=== PATIENT | female | born 1995 | race Caucasian/White ===

== ENCOUNTER 2017-11-27 12:03 | Emergency (ER) | payer OTHER ==
[~2017-11-27] VITALS: Ht 167.6 cm; Wt 75.0 kg
[2017-11-27 12:28] VITALS: TEMP 36.5; Ht 167.6 cm; Wt 75.0 kg
[2017-11-27] MEDS ORDERED: LORAZEPAM 1 MG TAB SL STA (12:57)
--- NOTE | 2017-11-27 13:01 | DIAGNOSTIC IMAGING REPORT ---
CHEST ONE VIEW PORTABLE CLINICAL HISTORY: Chest Pain dyspnea COMPARISON STUDY: No previous studies for comparison. FINDINGS: The bones soft tissues and hemidiaphragms are normal. The cardiomediastinal silhouette is normal. The lungs are clear. The pulmonary vasculature is normal. IMPRESSION: Negative chest. The above report was generated using voice recognition software. It may contain grammatical, syntax or spelling errors. Electronically signed by: Pedro Ellison M.D. 11/27/2017 1:00 PM Dictated Date/Time: 11/27/2017 1:00 PM
[2017-11-27 13:14] LABS: BASO % 0.5 %; BASO ABS # 0.03 K/uL (0-0.2); EOS % 1.3 %; EOS ABS # 0.07 K/uL (0-0.5); HEMATOCRIT 45.1 % (37-47); HEMOGLOBIN 15.1 g/dL (12.0-16.0); IG# 0.01 K/uL (0.00-0.02); LYMPH % 31.7 %; LYMPH ABS # 1.77 K/uL (1.2-3.4); MEAN CORPUSCULAR HEMOGLOBIN 31.1 pg (25-34); MEAN CORPUSCULAR HGB CONC 33.5 g/dl (32-36); MEAN PLATELET VOLUME 9.7 fL (7.4-10.4); MONO ABS # 0.56 K/uL (0.11-0.59); NEUT % 56.3 %; NEUT ABS # 3.14 K/uL (1.4-6.5); PLATELET COUNT 297 K/uL (130-400); RED CELL DISTRIBUTION WIDTH CV 14.7 % (11.5-14.5); RED CELL DISTRIBUTION WIDTH SD 49.9 fL (36.4-46.3); WHITE BLOOD COUNT 5.58 K/uL (4.8-10.8)
[2017-11-27 13:24] LABS: BLOOD UREA NITROGEN 6 mg/dl (7-18); CALCIUM 9.1 mg/dl (8.5-10.1); CARBON DIOXIDE 24 mmol/L (21-32); CREATININE 0.66 mg/dl (0.60-1.20); GLUCOSE 84 mg/dl (70-99); POTASSIUM 3.4 mmol/L (3.5-5.1); SODIUM 138 mmol/L (136-145)
[2017-11-27 13:29] LABS: CKMB < 0.5 ng/ml (0.5-3.6)
[2017-11-27] MEDS ORDERED: NUTRPAK70 PO (13:39)
[2017-11-27] MEDS ORDERED: ACET-1311 PO (13:41)
[2017-11-27] MEDS ORDERED: IBUP-1050 PO (13:41)
[2017-11-27 13:53] LABS: INFLUENZA B ANTIGEN Neg for Influ B (NEG)
[2017-11-27 15:10] VITALS: BP 113/88; PULSE 103; O2SAT 100
--- NOTE | 2017-11-27 17:07 | EMERGENCY ROOM VISIT NOTE ---
History Report prepared by Gorge: Mary Grace Garces Under the Supervision of: Dr. Alonso Castro D.O. First contact with patient: 12:29 Chief Complaint: ANXIETY Stated Complaint: ANXIETY History of Present Illness The patient is a 22 year old female who presents to the Emergency Room with complaints of worsening anxiety beginning this morning. The patient was sick with a nonproductive cough and runny nose a week ago. The patient states she felt lightheadedness beginning yesterday. She states her lightheadedness worsens with change in positions. The patient states she started to feel anxious because of her illness. The patient has a history of anxiety. Denies any suicidal or homicidal ideations. Pt denies headache, change in vision, fevers, chest pain, shortness of breath, nausea, vomiting, diarrhea, pain with urination, and melena. Source of History: patient Onset: this morning Position: other (generalized) Quality: other (anxiety) Timing: worsening Associated Symptoms: + cough, No chest pain, No SOB, No nausea, No vomiting , No diarrhea, No urinary symptoms Review of Systems See HPI for pertinent positives & negatives. A total of 10 systems reviewed and were otherwise negative. Past Medical & Surgical Medical Problems: (1) Anxiety Family History Patient reports no known family medical history. Social History Occupation Status: employed Current/Historical Medications Scheduled Acetaminophen (Tylenol), 650 MG PO UD Ibuprofen (Advil), 400 MG PO UD Nutritional Supplements (Cold And Flu), 1 TAB PO UD Allergies Coded Allergies: No Known Allergies (Unverified , 11/27/17) Physical Exam Vital Signs Date Time Temp Pulse Resp B/P (MAP) Pulse Ox O2 Delivery O2 Flow Rate FiO2 11/27/17 15:10 103 18 113/88 100 Room Air 11/27/17 12:28 36.5 91 18 126/82 98 Room Air Physical Exam GENERAL: Sitting up in bed, tearful, no distress, and is talking in full sentences. EYE EXAM: normal conjunctiva. OROPHARYNX: no exudate, no erythema, lips, buccal mucosa, and tongue normal and mucous membranes are moist NECK: supple, no nuchal rigidity, no adenopathy, non-tender LUNGS: Clear to auscultation. Normal chest wall mechanics HEART: no murmurs, S1 normal and S2 normal ABDOMEN: abdomen soft, non-tender, normo-active bowel sounds, no masses, no rebound or guarding. BACK: Back is symmetrical on inspection and there is no deformity, no midline tenderness, no CVA tenderness. SKIN: no rashes and no bruising UPPER EXTREMITIES: upper extremities are grossly normal. LOWER EXTREMITIES: No pitting edema. Calves are equal bilaterally. NEURO EXAM: Normal sensorium, cranial nerves II-XII grossly intact, normal speech, no gross weakness of arms, no gross weakness of legs. Gross sensation intact PSYCH: Denies any suicidal or homicidal ideations. Medical Decision & Procedures ER Provider Diagnostic Interpretation: Radiology results as stated below per my review and the radiologist's interpretation: CHEST ONE VIEW PORTABLE FINDINGS: The bones soft tissues and hemidiaphragms are normal. The cardiomediastinal silhouette is normal. The lungs are clear. The pulmonary vasculature is normal. IMPRESSION: Negative chest. The above report was generated using voice recognition software. It may contain grammatical, syntax or spelling errors. Electronically signed by: Pedro Ellison M.D. Laboratory Results 11/27/17 13:00 Red Blood Count 4.85, Mean Corpuscular Volume 93.0, Mean Corpuscular Hemoglobin 31.1, Mean Corpuscular Hemoglobin Concent 33.5, Mean Platelet Volume 9.7, Neutrophils (%) (Auto) 56.3, Lymphocytes (%) (Auto) 31.7, Monocytes (%) (Auto) 10.0, Eosinophils (%) (Auto) 1.3, Basophils (%) (Auto) 0.5, Neutrophils # (Auto ) 3.14, Lymphocytes # (Auto) 1.77, Monocytes # (Auto) 0.56, Eosinophils # (Auto ) 0.07, Basophils # (Auto) 0.03 11/27/17 13:00 Test 11/27/17 13:00 11/27/17 13:21 White Blood Count 5.58 K/uL (4.8-10.8) Red Blood Count 4.85 M/uL (4.2-5.4) Hemoglobin 15.1 g/dL (12.0-16.0) Hematocrit 45.1 % (37-47) Mean Corpuscular Volume 93.0 fL (80-100) Mean Corpuscular Hemoglobin 31.1 pg (25-34) Mean Corpuscular Hemoglobin Concent 33.5 g/dl (32-36) Platelet Count 297 K/uL (130-400) Mean Platelet Volume 9.7 fL (7.4-10.4) Neutrophils (%) (Auto) 56.3 % Lymphocytes (%) (Auto) 31.7 % Monocytes (%) (Auto) 10.0 % Eosinophils (%) (Auto) 1.3 % Basophils (%) (Auto) 0.5 % Neutrophils # (Auto) 3.14 K/uL (1.4-6.5) Lymphocytes # (Auto) 1.77 K/uL (1.2-3.4) Monocytes # (Auto) 0.56 K/uL (0.11-0.59) Eosinophils # (Auto) 0.07 K/uL (0-0.5) Basophils # (Auto) 0.03 K/uL (0-0.2) RDW Standard Deviation 49.9 fL (36.4-46.3) RDW Coefficient of Variation 14.7 % (11.5-14.5) Immature Granulocyte % (Auto) 0.2 % Immature Granulocyte # (Auto) 0.01 K/uL (0.00-0.02) Anion Gap 8.0 mmol/L (3-11) Est Creatinine Clear Calc Drug Dose 136.0 ml/min Estimated GFR () 143.3 Estimated GFR (Non- 123.6 BUN/Creatinine Ratio 9.0 (10-20) Calcium Level 9.1 mg/dl (8.5-10.1) Total Creatine Kinase 31 U/L (26-192) Creatine Kinase MB < 0.5 ng/ml (0.5-3.6) Creatine Kinase MB Ratio (0-3.0) Troponin I < 0.015 ng/ml (0-0.045) Influenza Type A Antigen Neg for Influ A (NEG) Influenza Type B Antigen Neg for Influ B (NEG) Laboratory results per my review. Medications Administered Medications (Trade) Dose Ordered Sig/Suhas Route Start Time Stop Time Status Last Admin Dose Admin Lorazepam (Ativan Tab) 1 mg NOW STAT SL 11/27/17 12:57 11/27/17 12:59 DC 11/27/17 13:26 1 MG ECG Per My Interpretation Indication: other Rate (beats per minute): 87 Rhythm: sinus rhythm Findings: other (normal axis, no PVC) ED Course ED COURSE: Vital signs were reviewed and showed tachycardic The patients medical record was reviewed The above diagnostic studies were performed and reviewed. ED treatments and interventions as stated above. 1231: The patient was evaluated in room A5. A complete history and physical examination was performed. 1257: ordered Ativan Tab 1 mg SL. 1316: The patient is feeling better. 1423: I updated the patient on her test results. 1450: The patient is resting comfortably. 1530: Upon reevaluation, the patient is resting comfortably.I discussed my findings with the patient and she understands and agrees with the treatment plan. Based on the patients age, coexisting illnesses, exam and lab findings the decision to treat as an outpatient was made. The patient remained stable while under my care. The patient will be evaluated for further management. Medical Decision Differential diagnoses includes but is not limited to pneumonia, bronchitis, COPD/Asthma exacerbation, pneumothorax, pulmonary embolism, congestive heart failure, acute coronary syndrome. Patient is a 22-year-old female that presents to ER for cough, runny nose and congestion. This is been going on for the past week. She also notes she feels a little lightheaded with changing of positions. This is all exacerbating her anxiety. She denies any suicidal homicidal ideations. CBC and BMP was unremarkable. Troponin was negative. Influenza was negative. Chest x-ray without signs of focal infiltrate. Patient was given Ativan and is feeling significantly better. She complete resolution of her symptoms. She is evaluated by her psychiatric health care coach. She denies any suicidal homicidal ideations again. No signs of meningitis or encephalitis on exam. On discharge she notes she feels much better since comfortable going home. Discussed with Pt concerning signs and symptoms to watch out for. Pt was instructed to follow up with their PCP and discussed with the patient their option to return to the ED at anytime for persistent or worsening symptoms. The appropriate anticipatory guidance and out-patient management, including indications for return to the emergency department, were explained at length to the patient and understood. Medication Reconcilliation Current Medication List: was personally reviewed by me Blood Pressure Screening Patient's blood pressure: Normal blood pressure Impression Primary Impression: Depression Additional Impression: URI, acute Scribe Attestation The scribe's documentation has been prepared under my direction and personally reviewed by me in its entirety. I confirm that the note above accurately reflects all work, treatment, procedures, and medical decision making performed by me. Departure Information Dispostion Home / Self-Care Forms HOME CARE DOCUMENTATION FORM, IMPORTANT VISIT INFORMATION Patient Instructions Depression Causes, ED URI Viral, [facility] Additional Instructions Please follow up with your primary care doctor with in the next 24 hours. Any worsening of your symptoms, please return to the ED immediately. This includes any fevers greater than 100.4, worsening pain, chest pain, shortness breath, persistent nausea, vomiting, unable to eat or drink, or any other concerning signs or symptoms from your standpoint. Please take Tylenol or Motrin as needed for upper respiratory symptoms. Any thoughts of self-harm or harming anyone else please return to the ER immediately. Problem Qualifiers Primary Impression: Depression Depression Type: unspecified Qualified Codes: F32.9 - Major depressive disorder, single episode, unspecified
== END 2017-11-27 15:11 | disposition home or self-care (01) ==
LOC: EDBD 12:03 → C.EDA 12:04
DX: F32.9 Major depressive disorder, single episode, unspecified (principal); J06.9 Acute upper respiratory infection, unspecified; F41.9 Anxiety disorder, unspecified